=== PATIENT | male | born 1995 | race Caucasian/White ===

== ENCOUNTER 2018-08-07 05:10 | Inpatient (IN) | payer BC, OTHER ==
[2018-08-07 05:36] LABS: URINE PH (Dip) POC 6.5 (5.0-8.5)
[2018-08-07 05:36] LABS: URINE BLOOD (Dip) POC Trace-intact (NEGATIVE); URINE KETONES (Dip) POC Negative (NEGATIVE); URINE LEUKOCYTE EST (Dip) POC 1+ (NEGATIVE); URINE NITRITE (Dip) POC Negative (NEGATIVE); URINE TOTAL PROTEIN POC 1+ (NEGATIVE)
[2018-08-07] MEDS: ROCURONIUM 50 MG INJ IV (05:58)
[2018-08-07 06:02] LABS: WHITE BLOOD COUNT 27.1 10^3/ul (4.8-10.8)
[2018-08-07 06:02] LABS: ABNORMAL IP MESSAGE 1; HEMOGLOBIN 16.7 g/dl (14.0-18.0); MEAN CORPUSCULAR HEMOGLOBIN 31.2 pg (29.0-33.0); MEAN CORPUSCULAR HGB CONC 32.7 g/dl (32.0-37.0); MEAN CORPUSCULAR VOLUME 95.1 fl (82.0-101.0); MEAN PLATELET VOLUME 9.3 fl (7.4-10.4); PLATELET COUNT 406 10^3/UL (140-415); POSITIVE DIFF @See below; RED BLOOD COUNT 5.36 10^6/ul (4.70-6.10)
[2018-08-07 06:10] LABS: ADD MAN DIFF? YES
[2018-08-07] MEDS: SOD CHLORIDE 0.9% 1,000 ML IV ×3 (06:10→18:11)
[2018-08-07 06:12] LABS: AMMONIA 48 umol/l (9-30)
[2018-08-07 06:14] LABS: ALANINE AMINOTRANSFERASE 132 IU/L (13-69); ALBUMIN 4.6 g/dl (3.3-4.9); ALBUMIN/GLOBULIN RATIO 1.35; ALKALINE PHOSPHATASE 111 IU/L (42-121); ANION GAP 15 (5-13); ASPARTATE AMINO TRANSFERASE 174 IU/L (15-46); BILIRUBIN,INDIRECT 0.4 mg/dl (0-1.1); BILIRUBIN,TOTAL 0.4 mg/dl (0.2-1.3); BLOOD UREA NITROGEN 11 mg/dl (7-20); CALCIUM 9.3 mg/dl (8.4-10.2); CARBON DIOXIDE 26 mmol/L (21-31); CHLORIDE 101 mmol/L (97-110); CREATINE KINASE 146 IU/L (23-200); CREATININE 1.64 mg/dl (0.61-1.24); Estimated GFR 52 mL/min (>60); GLUCOSE 298 mg/dl (70-220); POTASSIUM 4.2 mmol/L (3.5-5.1); SODIUM 142 mmol/L (135-144)
[2018-08-07 06:18] LABS: ACETAMINOPHEN < 10.0 ug/ml (10.0-30.0); ETHANOL < 10.0 mg/dl (0-0); SALICYLATE < 1.0 mg/dl (5.0-30.0)
[2018-08-07 06:19] LABS: ADD UMIC YES; UR ASCORBIC ACID NEGATIVE (NEGATIVE); UR BACTERIA FEW /HPF (NONE SEEN); UR BILIRUBIN (Dip) NEGATIVE (NEGATIVE); UR BLOOD (Dip) 1+ mg/dL (NEGATIVE); UR CLARITY SLIGHTLY CLOUDY (CLEAR); UR COLOR YELLOW (YELLOW); UR GLUCOSE (Dip) 2+ mg/dL (NEGATIVE); UR HYALINE CAST FEW /HPF (NONE SEEN); UR KETONES (Dip) NEGATIVE (NEGATIVE); UR LEUKOCYTE ESTERASE (Dip) 2+ Leu/ul (NEGATIVE); UR MUCUS MANY /HPF (NONE SEEN); UR NITRITE (Dip) NEGATIVE (NEGATIVE); UR NONSQUAMOUS EPITHELIAL CELL 1 /HPF (NONE SEEN); UR RBC 9 /HPF (0-5); UR SPECIFIC GRAVITY (Dip) 1.014 (1.003-1.030); UR TOTAL PROTEIN (Dip) 1+ mg/dl (NEGATIVE); UR UROBILINOGEN (Dip) 2+ mg/dL (NEGATIVE); UR WBC 93 /HPF (0-5)
[2018-08-07 06:21] LABS: INR 0.95; PROTIME 12.8 Sec (11.9-14.9)
[2018-08-07 06:22] LABS: PARTIAL THROMBOPLASTIN TIME 24.7 Sec (23.0-35.0)
[2018-08-07 06:26] LABS: AADO2 Arterial 577.4 mmHg (7.0-24.0); Allen Test ACCEPTAB; Arterial Base Excess -3.3 mmol/L (-3.0-3); Arterial Blood Gas Oxygen Sat 95.1 mmHG (95.0-98.0); Arterial COHb 0.2 % (0.0-3.0); Arterial Fraction of Oxyhgb 94.5 % (93.0-99.0); Arterial HCO3 24.7 mmol/L (22.0-26.0); Arterial MetHb 0.4 % (0.0-1.5); Arterial pCO2 55.5 mmhg (35-45); MODE VENT - AC; Site Right Radial
[2018-08-07 06:33] LABS: AMPHETAMINE/METHAMPHETAMINE POSITIVE (NEGATIVE); BARBITURATES NEGATIVE (NEGATIVE); BENZODIAZEPINES NEGATIVE (NEGATIVE); CANNABINOIDS POSITIVE (NEGATIVE); COCAINE NEGATIVE (NEGATIVE); OPIATES POSITIVE (NEGATIVE)
[2018-08-07] MEDS ORDERED: ROCURONIUM 50 MG INJ (07:00)
[2018-08-07 07:01] LABS: CK INDEX 0.4; CK-MB 0.64 ng/ml (0.0-2.4); TROPONIN-I 0.073 ng/ml (0.000-0.120)
[2018-08-07 07:07] LABS: FREE THYROXINE INDEX (Calc) 2.89 ug/ml (0.65-3.89); T3 UPTAKE 35.7 % (23.5-40.5); T4 (THYROXINE) 8.1 ug/dl (5.5-11.0)
[2018-08-07 07:30] LABS: ANISOCYTOSIS 1+ (0-0); BAND NEUTROPHILS #M 0.8 10^3/ul (0.0-0.6); BAND NEUTROPHILS % (M) 3 % (0-4); BURR CELLS 1+ (0-0); LYMPHOCYTES #M 2.7 10^3/ul (0.8-2.9); LYMPHOCYTES % (M) 10 % (15-51); MICROCYTOSIS 1+ (0-0); MONOCYTE #M 0.5 10^3/ul (0.3-0.9); MONOCYTES % (M) 2 % (0-11); MYELOCYTES #M 0.2 10^3/ul (0.0-0.0); MYELOCYTES % (M) 1 % (0-0); PLATELET ESTIMATE NORMAL; POIKILOCYTOSIS 1+ (0-0); POLYCHROMASIA 1+ (0-0); SEGMENTED NEUTROPHILS (M) % 84 % (39-77); SMUDGE%M 2 % (0-0)
[2018-08-07] MEDS: PROPOFOL 100 ML IV ×2 (07:38→11:49)
[2018-08-07] MEDS: SODIUM CHLORIDE 0.9% 1L BAG IV* (07:50)
[2018-08-07] MEDS: PIPER-TAZO 3.375 GM IV (PMX) 100 ML IVPB ×3 (07:50→22:05)
[2018-08-07 08:22] LABS: LACTIC ACID 4.4 mmol/L (0.5-2.0)
[2018-08-07] MEDS: LORAZEPAM 2 MG INJ IV (08:51)
[2018-08-07] MEDS: MULTIVITAMINS 10 ML, THIAMINE 100 MG, FOLIC ACID 1 MG, MAGNESIUM SULFATE 2 GM in SOD CH... IV (08:51)
[2018-08-07] MEDS: VANCOMYCIN 1 GM (PMX) 250 ML IVPB (08:52)
[2018-08-07 10:23] LABS: LACTIC ACID 4.3 mmol/L (0.5-2.0)
[2018-08-07] MEDS: ALBUTEROL 0.083% (NEB) 2.5 MG/3 ML AMP HHN ×2 (15:48→19:21)
[2018-08-07 16:33] LABS: LACTIC ACID 2.2 mmol/L (0.5-2.0)
[2018-08-07] MEDS: FAMOTIDINE 20 MG INJ IV (22:05)
[2018-08-08] MEDS: ALBUTEROL 0.083% (NEB) 2.5 MG/3 ML AMP HHN ×4 (01:22→19:50)
[2018-08-08] MEDS: SOD CHLORIDE 0.9% 1,000 ML IV ×2 (04:42→13:35)
[2018-08-08] MEDS: PIPER-TAZO 3.375 GM IV (PMX) 100 ML IVPB ×3 (06:09→22:52)
[2018-08-08 06:34] LABS: ADD MAN DIFF? NO
[2018-08-08 06:41] LABS: BASOPHIL # 0.1 10^3/ul (0.0-0.1); BASOPHILS % 0.3 % (0.0-2.0); EOSINOPHILS # 0.1 10^3/ul (0.0-0.5); EOSINOPHILS % 0.6 % (0.0-7.0); HEMOGLOBIN 14.7 g/dl (14.0-18.0); LYMPHOCYTES # 1.3 10^3/ul (0.8-2.9); LYMPHOCYTES % 8.3 % (15.0-51.0); MEAN CORPUSCULAR HGB CONC 33.4 g/dl (32.0-37.0); MEAN CORPUSCULAR VOLUME 92.8 fl (82.0-101.0); MEAN PLATELET VOLUME 9.6 fl (7.4-10.4); MONOCYTE # 0.9 10^3/ul (0.3-0.9); MONOCYTES % 5.5 % (0.0-11.0); NEUTROPHIL # 13.7 10^3/ul (1.6-7.5); NEUTROPHILS % 84.9 % (39.0-77.0); PLATELET COUNT 312 10^3/UL (140-415); RED BLOOD COUNT 4.74 10^6/ul (4.70-6.10); RED CELL DISTRIBUTION WIDTH 13.2 % (11.5-14.5)
[2018-08-08 06:41] LABS: WHITE BLOOD COUNT 16.1 10^3/ul (4.8-10.8)
[2018-08-08 07:07] LABS: ANION GAP 8 (5-13); Estimated GFR > 60 mL/min (>60)
[2018-08-08 07:08] LABS: LACTIC ACID 1.7 mmol/L (0.5-2.0)
[2018-08-08 07:09] LABS: ALANINE AMINOTRANSFERASE 68 IU/L (13-69); ALBUMIN 3.2 g/dl (3.3-4.9); ALKALINE PHOSPHATASE 78 IU/L (42-121); ASPARTATE AMINO TRANSFERASE 34 IU/L (15-46); BILIRUBIN,INDIRECT 0.6 mg/dl (0-1.1); BILIRUBIN,TOTAL 0.6 mg/dl (0.2-1.3); TOTAL PROTEIN 5.8 g/dl (6.1-8.1)
[2018-08-08 07:11] LABS: BLOOD UREA NITROGEN 8 mg/dl (7-20); CALCIUM 8.5 mg/dl (8.4-10.2); CARBON DIOXIDE 26 mmol/L (21-31); CHLORIDE 107 mmol/L (97-110); CREATININE 0.96 mg/dl (0.61-1.24); GLUCOSE 95 mg/dl (70-220); MAGNESIUM 2.1 mg/dl (1.7-2.5); PHOSPHORUS 3.2 mg/dl (2.5-4.9); SODIUM 141 mmol/L (135-144)
[2018-08-08 07:36] LABS: HEPATITIS B SURFACE ANTIGEN NEGATIVE (NEGATIVE)
[2018-08-08 07:54] LABS: HEPATITIS B CORE ANTIBODY NEGATIVE (NEGATIVE)
[2018-08-08 07:55] LABS: HEPATITIS B SURFACE ANTIBODY NEGATIVE (NEGATIVE)
[2018-08-08] MEDS: FAMOTIDINE 20 MG TAB PO ×2 (08:20→21:03)
[2018-08-08 09:07] LABS: HEPATITIS C VIRAL ANTIBODY NEGATIVE (NEGATIVE)
[2018-08-08] MEDS: THIAMINE 100 MG TAB PO (15:25)
[2018-08-08] MEDS: KETOROLAC 30 MG INJ IV (22:53)
[2018-08-09] MEDS: SOD CHLORIDE 0.9% 1,000 ML IV (01:12)
[2018-08-09] MEDS: ALBUTEROL 0.083% (NEB) 2.5 MG/3 ML AMP HHN ×3 (02:09→14:51)
[2018-08-09] MEDS: PIPER-TAZO 3.375 GM IV (PMX) 100 ML IVPB ×2 (06:14→13:13)
[2018-08-09 07:35] LABS: ADD MAN DIFF? NO
[2018-08-09 07:37] LABS: BASOPHIL # 0.1 10^3/ul (0.0-0.1); BASOPHILS % 0.4 % (0.0-2.0); EOSINOPHILS # 0.3 10^3/ul (0.0-0.5); HEMATOCRIT 42.5 % (42.0-52.0); HEMOGLOBIN 14.2 g/dl (14.0-18.0); LYMPHOCYTES # 2.6 10^3/ul (0.8-2.9); LYMPHOCYTES % 18.5 % (15.0-51.0); MEAN CORPUSCULAR HEMOGLOBIN 30.9 pg (29.0-33.0); MEAN CORPUSCULAR HGB CONC 33.4 g/dl (32.0-37.0); MEAN CORPUSCULAR VOLUME 92.6 fl (82.0-101.0); MONOCYTE # 1.1 10^3/ul (0.3-0.9); NEUTROPHIL # 9.9 10^3/ul (1.6-7.5); NEUTROPHILS % 70.7 % (39.0-77.0); PLATELET COUNT 312 10^3/UL (140-415); RED BLOOD COUNT 4.59 10^6/ul (4.70-6.10); RED CELL DISTRIBUTION WIDTH 13.2 % (11.5-14.5)
[2018-08-09 07:37] LABS: WHITE BLOOD COUNT 14.1 10^3/ul (4.8-10.8)
[2018-08-09 08:04] LABS: MAGNESIUM 2.2 mg/dl (1.7-2.5)
[2018-08-09 08:04] LABS: PHOSPHORUS 3.8 mg/dl (2.5-4.9)
[2018-08-09 08:06] LABS: ANION GAP 8 (5-13); BLOOD UREA NITROGEN 8 mg/dl (7-20); CALCIUM 8.7 mg/dl (8.4-10.2); CARBON DIOXIDE 26 mmol/L (21-31); CHLORIDE 108 mmol/L (97-110); CREATININE 0.93 mg/dl (0.61-1.24); Estimated GFR > 60 mL/min (>60); GLUCOSE 84 mg/dl (70-220); POTASSIUM 3.9 mmol/L (3.5-5.1); SODIUM 142 mmol/L (135-144)
[2018-08-09] MEDS: FAMOTIDINE 20 MG TAB PO (08:39)
[2018-08-09] MEDS: THIAMINE 100 MG TAB PO (08:40)
[2018-08-09] MEDS: ENOXAPARIN 40 MG/0.4 ML SYG SC (08:45)
[2018-08-09] MEDS: GUAIFENESIN/DM 5ML CUP PO ×2 (08:49→16:50)
[2018-08-09] MEDS: KETOROLAC 30 MG INJ IV ×2 (08:49→16:51)
== END 2018-08-09 17:54 | disposition home or self-care (01) | DRG 871 ==
LOC: E/R 05:10 → 5EC 08-08 21:53 → TEL 14:10
PROC: 0BH17EZ Insertion of Endotracheal Airway into Trachea, Via Natural or Artificial Opening (ICD-10-PCS; principal; 2018-08-07)
PROC: 5A1935Z Respiratory Ventilation, Less than 24 Consecutive Hours (ICD-10-PCS; 2018-08-07)
PROC: 4A033R1 Measurement of Arterial Saturation, Peripheral, Percutaneous Approach (ICD-10-PCS; 2018-08-07)
DX: A41.9 Sepsis, unspecified organism (principal); G92 Toxic encephalopathy; J96.01 Acute respiratory failure with hypoxia; J69.0 Pneumonitis due to inhalation of food and vomit; N17.9 Acute kidney failure, unspecified; E72.20 Disorder of urea cycle metabolism, unspecified; N39.0 Urinary tract infection, site not specified; F11.20 Opioid dependence, uncomplicated; R65.20 Severe sepsis without septic shock; F15.10 Other stimulant abuse, uncomplicated; F12.10 Cannabis abuse, uncomplicated; R74.0 Nonspecific elevation of levels of transaminase and lactic acid dehydrogenase [LDH]; T43.621A Poisoning by amphetamines, accidental (unintentional), initial encounter; T40.2X1A Poisoning by other opioids, accidental (unintentional), initial encounter; T40.601A Poisoning by unspecified narcotics, accidental (unintentional), initial encounter; F32.9 Major depressive disorder, single episode, unspecified; F10.20 Alcohol dependence, uncomplicated; K29.70 Gastritis, unspecified, without bleeding; Z87.820 Personal history of traumatic brain injury
CPT/HCPCS: 31500; 36415; 36600; 70450; 71045; 80048; 80053; 80076; 80307; 81001; 81003; 82140; 82550; 82553; 82803; 83036; 83605; 83735; 84100; 84436; 84443; 84479; 84484; 85025; 85610; 85730; 86704; 86706; 86803; 87040; 87070; 87086; 87340; 87400; 93005; 94002; 94640; 94664; 96361; 96365; 96375; 99291-25